=== PATIENT | female | born 1995 | race Caucasian/White ===

== ENCOUNTER 2017-12-23 11:34 | Emergency (ER) | payer OTHER ==
[2017-12-23] MEDS ORDERED: HYDROCODONE/ACETAMINOPHEN 5-325 MG TABLET PO ONE (11:54)
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
[2017-12-23 12:54] LABS: APPEARANCE,URINE SLIGHTLY-CLOUDY; BILIRUBIN,URINE NEGATIVE (NEGATIVE); COLOR,URINE YELLOW; GLUCOSE, URINE NEGATIVE (NEGATIVE); KETONES,URINE NEGATIVE (NEGATIVE); LEUKOCYTE ESTERASE,URINE NEGATIVE (NEGATIVE); NITRITE,URINE NEGATIVE (NEGATIVE); PROTEIN,URINE NEGATIVE (NEGATIVE); URINE SPECIFIC GRAVITY 1.009; UROBILINOGEN,URINE NEGATIVE mg/dL (<2.0)
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
[2017-12-23] MEDS ORDERED: IBUPROFEN 800 MG TABLET PO ONE (13:50)
[2017-12-23 14:04] VITALS: BP 119/79
== END 2017-12-23 14:04 | disposition home or self-care (01) ==
LOC: ER 11:34
DX: M79.605 Pain in left leg (principal); M25.512 Pain in left shoulder; R51 Headache; V49.9XXA Car occupant (driver) (passenger) injured in unspecified traffic accident, initial encounter; F41.9 Anxiety disorder, unspecified; Z88.5 Allergy status to narcotic agent; Z88.0 Allergy status to penicillin
CPT/HCPCS: 70450; 72125; 81001; 81025; 99284

== ENCOUNTER 2018-05-24 19:31 | Emergency (ER) | payer OTHER ==
[2018-05-24 20:21] VITALS: BP 117/73
== END 2018-05-24 21:15 | disposition left against medical advice (07) ==
LOC: ER 19:31
DX: Z53.21 Procedure and treatment not carried out due to patient leaving prior to being seen by health care provider (principal)

== ENCOUNTER 2018-06-13 20:32 | Emergency (ER) | payer MEDICAID, OTHER ==
[2018-06-13] MEDS ORDERED: AZITHROMYCIN 250 MG TABLET PO ONE (22:17)
--- NOTE | 2018-06-13 22:24 | ER Document Report ---
HPI - HPI Patient complains to provider of: Sinus pain, congestion, cough Pain Level: 5 Context: Patient is a 22-year-old female that comes to the emergency department for chief complaint of sinus pain, she states she hurts in all of her sinuses with throbbing, nasal discharge, cough, hoarseness, postnasal drip, she states she even vomited up some mucus. She denies any abdominal pain, vaginal bleeding, she is 9 weeks with her first child. She is on vitamins, denies any other medications. She denies smoking, asthma, or any other medical history. Mother at bedside. - CONSTITUTIONAL Constitutional: REPORTS: Fever - pt states on and off fever - EENT EENT: REPORTS: Sore Throat, Ear Pain. DENIES: Eye problems - NEURO Neurology: REPORTS: Headache, Weakness - RESPIRATORY Respiratory: REPORTS: Coughing - REPRODUCTIVE Reproductive: REPORTS: : Past Medical History - General Information source: Patient - Social History Smoking Status: Never Smoker Frequency of alcohol use: None Drug Abuse: None Lives with: Family Family History: Reviewed & Not Pertinent Patient has suicidal ideation: No Patient has homicidal ideation: No - Past Medical History Cardiac Medical History: Denies: Hx Coronary Artery Disease, Hx Heart Attack, Hx Hypertension Pulmonary Medical History: Reports: Hx Bronchitis Denies: Hx Asthma, Hx COPD, Hx Pneumonia Neurological Medical History: Denies: Hx Cerebrovascular Accident, Hx Seizures Renal/ Medical History: Reports: Hx Ovarian Cysts. Denies: Hx Peritoneal Dialysis Musculoskeletal Medical History: Denies Hx Arthritis Past Surgical History: Reports: Hx Adenoidectomy, Hx Appendectomy, Hx Gynecologic Surgery - ovarian cyst removal, Hx Orthopedic Surgery, Hx Tonsillectomy - Immunizations Immunizations up to date: Yes Hx Diphtheria, Pertussis, Tetanus Vaccination: Yes Vertical Provider Document - CONSTITUTIONAL General Appearance: WD/WN, No Apparent Distress - INFECTION CONTROL TRAVEL OUTSIDE OF THE [place] IN LAST 30 DAYS: No - HEENT HEENT: Atraumatic, Normocephalic. negative: Normal ENT Exam - Sinus congestion with nasal congestion, tenderness over the maxillary and frontal sinuses which is very mild, unremarkable ear exam, oral pharyngeal exam shows postnasal drip but is otherwise unremarkable. - NECK Neck: Normal Inspection - RESPIRATORY Respiratory: Breath Sounds Normal, No Respiratory Distress - CARDIOVASCULAR Cardiovascular: Regular Rate, Regular Rhythm - GI/ABDOMEN Gastrointestinal: Abdomen Soft, Abdomen Non-Tender - MUSCULOSKELETAL/EXTREMETIES Musculoskeletal/Extremeties: ROSA ELENA, FROM, Non-Tender - NEURO Level of Consciousness: Awake, Alert, Appropriate - DERM Integumentary: Warm, Dry, No Rash Course - Re-evaluation Re-evalutation: This is very well-appearing patient except for sinus congestion, sinus tenderness. Clear lungs, no hypoxia, no cough, no respiratory distress. Unremarkable oropharyngeal exam. Soft abdomen, no abdominal pain or bleeding reported. Appears to be sinus infection that is developing. I discussed this with patient and mother, discussed treatment, follow-up, and return precautions. They state satisfaction and agreement with plan. - Vital Signs Vital signs: Temp Pulse Resp BP Pulse Ox 97.8 F 94 18 125/73 97 06/13/18 20:51 06/13/18 20:51 06/13/18 20:51 06/13/18 20:51 06/13/18 20:51 Discharge - Discharge Clinical Impression: Cough Sinusitis Qualifiers: Sinusitis location: maxillary Chronicity: acute Recurrence: non-recurrent Qualified Code(s): J01.00 - Acute maxillary sinusitis, unspecified Condition: Stable Disposition: HOME, SELF-CARE Additional Instructions: Your evaluation is consistent with probably initially a virus and also a developing sinus infection with secondary drainage and cough. Take antibiotics as prescribed, use Flonase as prescribed, you can use Phenergan to help with nausea, take Benadryl to help with sinus drainage and and sleep. Drink plenty fluids and rest. Follow-up with primary care. Return to the emergency department for any concerning symptoms including difficulty breathing, passing out, fever of 100.4 or greater, or any other concerning symptoms. Prescriptions: Azithromycin [Zithromax 250 mg Tablet] 250 mg PO ASDIR PRN #4 tablet PRN Reason: Fluticasone Propionate [Flonase Nasal [place] 50 Mcg/[place] 16 gm] 1 spray NASL Q12 #1 inhaler Promethazine HCl [Phenergan 25 mg Tablet] 25 mg PO Q6H PRN #15 tablet PRN Reason: Forms: Return to Work Referrals: DAVE MCADAMS MD [Primary Care Provider] - 06/17/18
[2018-06-13 22:44] VITALS: BP 109/50
== END 2018-06-13 22:44 | disposition home or self-care (01) ==
LOC: ER 20:32
DX: O98.811 Other maternal infectious and parasitic diseases complicating pregnancy, first trimester (principal); J01.00 Acute maxillary sinusitis, unspecified; O26.891 Other specified pregnancy related conditions, first trimester; R05 Cough; R50.9 Fever, unspecified; Z3A.09 9 weeks gestation of pregnancy
CPT/HCPCS: 99283; Q0144

== ENCOUNTER 2018-06-26 23:23 | Emergency (ER) | payer MEDICAID ==
[2018-06-26 23:28] VITALS: BP 127/68
--- NOTE | 2018-06-27 00:25 | ER Document Report ---
ED Medical Screen (RME) - General Chief Complaint: Cough Stated Complaint: COUGH,LEFT EAR PAIN Time Seen by Provider: 06/27/18 00:22 Notes: 22-year-old female, 10 weeks by last menstrual period, chief complaint of 4 days of worsening cough and fevers. She does have congestion and right ear pain as well. She did have her flu shot. She was seen at the end of last month and treated with antibiotics for a sinus infection which she states resolved before she started getting sick again. 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 She denies abdominal pain, vaginal bleeding. TRAVEL OUTSIDE OF THE [place] IN LAST 30 DAYS: No - Related Data Allergies/Adverse Reactions: Latex, Natural Rubber Allergy (Verified 05/24/18 19:32) morphine [Morphine] Allergy (Verified 05/24/18 19:32) Vomiting penicillin G [Penicillin G] Allergy (Verified 05/24/18 19:32) Urticaria Penicillins Allergy (Verified 05/24/18 19:32) Urticaria Past Medical History - Past Medical History Cardiac Medical History: Denies: Hx Coronary Artery Disease, Hx Heart Attack, Hx Hypertension Pulmonary Medical History: Reports: Hx Bronchitis Denies: Hx Asthma, Hx COPD, Hx Pneumonia Neurological Medical History: Denies: Hx Cerebrovascular Accident, Hx Seizures Renal/ Medical History: Reports: Hx Ovarian Cysts. Denies: Hx Peritoneal Dialysis Musculoskeltal Medical History: Denies Hx Arthritis Past Surgical History: Reports: Hx Adenoidectomy, Hx Appendectomy, Hx Gynecologic Surgery - ovarian cyst removal, Hx Orthopedic Surgery, Hx Tonsillectomy - Immunizations Immunizations up to date: Yes Hx Diphtheria, Pertussis, Tetanus Vaccination: Yes Physical Exam - Vital signs Vitals: Temp Pulse Resp BP Pulse Ox 98.4 F 94 16 127/68 H 96 06/26/18 23:26 06/26/18 23:26 06/26/18 23:26 06/26/18 23:26 06/26/18 23:26 - Respiratory Breath sounds: Productive cough - Persistent cough with productive component, almost nonstop cough Course - Re-evaluation Re-evalutation: Patient with almost nonstop cough. Patient and mother wanted chest x-ray to evaluate for possible pneumonia. Also has congestion symptoms but has been sick for 4 days with reported fevers. Will do chest x-ray with shield. 06/27/18 00:24 - Vital Signs Vital signs: Temp Pulse Resp BP Pulse Ox 98.4 F 94 16 127/68 H 96 06/26/18 23:26 06/26/18 23:26 06/26/18 23:26 06/26/18 23:26 06/26/18 23:26 Doctor's Discharge - Discharge Referrals: DAVE MCADAMS MD [Primary Care Provider] - Follow up as needed
--- NOTE | 2018-06-27 01:29 | RADIOLOGY REPORT (SQ) ---
EXAM DESCRIPTION: XR CHEST 1 VIEW COMPLETED DATE/TME: 06/27/2018 00:22 CLINICAL HISTORY: fevers, persistent cough; (shield) COMPARISON: March 21, 2014 FINDINGS: Cardiac silhouette is within normal limits. There is no focal parenchymal or pleural disease. There is no acute osseous process visualized. IMPRESSION: No evidence of acute cardiopulmonary disease.
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
== END 2018-06-27 02:25 | disposition home or self-care (01) ==
LOC: ER 23:23
DX: O26.91 Pregnancy related conditions, unspecified, first trimester (principal); J30.2 Other seasonal allergic rhinitis; R05 Cough; H92.02 Otalgia, left ear; Z3A.10 10 weeks gestation of pregnancy; Z91.040 Latex allergy status; Z88.0 Allergy status to penicillin; Z88.6 Allergy status to analgesic agent
CPT/HCPCS: 71045; 99283

== ENCOUNTER 2018-09-05 14:20 | Emergency (ER) | payer MEDICAID ==
--- NOTE | 2018-09-05 14:54 | ER Document Report ---
HPI - HPI Patient complains to provider of: Eye drainage Time Seen by Provider: 09/05/18 14:38 Onset: Yesterday Onset/Duration: Gradual Pain Level: 5 Context: Patient states she had eye irritation yesterday with swelling to the left upper eyelid. Patient states she was applying warm compresses frequently throughout the day. Patient states she woke up this morning and had drainage and matting her left eyelid. Patient states that the swelling to the upper eyelid seems to be improved although is still mildly tender. Patient denies any use of contact lenses or glasses. Patient is concerned about [employer] as she works in [employer]. 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 Denies: Hx Peritoneal Dialysis Musculoskeletal Medical History: Denies Hx Arthritis Past Surgical History: Reports: Hx Adenoidectomy, Hx Appendectomy, Hx Gynecologic Surgery - ovarian cyst removal, Hx Orthopedic Surgery, Hx Tonsillectomy - Immunizations Immunizations up to date: Yes Hx Diphtheria, Pertussis, Tetanus Vaccination: Yes Vertical Provider Document - CONSTITUTIONAL Agree With Documented VS: Yes Exam Limitations: No Limitations General Appearance: WD/WN, No Apparent Distress - INFECTION CONTROL TRAVEL OUTSIDE OF THE [place] IN LAST 30 DAYS: No - HEENT HEENT: Atraumatic, Normocephalic, PERRLA Notes: Subtle swelling to medial upper eyelid concerning for hordeolum, very minimal drainage noted to base of eyelashes - NECK Neck: Normal Inspection, Supple. negative: Lymphadenopathy-Left, Lymphadenopathy-Right - RESPIRATORY Respiratory: No Respiratory Distress - BACK Back: Normal Inspection - MUSCULOSKELETAL/EXTREMETIES Musculoskeletal/Extremeties: IVAN CUBA - NEURO Level of Consciousness: Awake, Alert, Appropriate Motor/Sensory: No Motor Deficit - DERM Integumentary: Warm, Dry, No Rash Course - Re-evaluation Re-evalutation: 09/05/18 14:52 Patient presents with likely resolving stye at this time. No conjunctival injection. Patient does not wear glasses or contact lenses. No change in vision. 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 - Vital Signs Vital signs: Temp Pulse Resp BP Pulse Ox 98.6 F 102 H 14 120/68 99 09/05/18 14:28 09/05/18 14:28 09/05/18 14:28 09/05/18 14:28 09/05/18 14:28 Discharge - Discharge Clinical Impression: Hordeolum externum left upper eyelid Conjunctivitis Qualifiers: Conjunctivitis type: unspecified Laterality: left Qualified Code(s): H10.9 - Unspecified conjunctivitis Condition: Stable Disposition: HOME, SELF-CARE Instructions: Conjunctivitis ([facility]), Eyedrop Use ([facility]), Sty ([facility]) Additional Instructions: Return immediately for any new or worsening symptoms Followup with your primary care provider, call tomorrow to make a followup appointment Follow-up with cardiac cath tech for any persistent problems Prescriptions: Polymyxin B Sulfate/Tmp [Polytrim Oph Soln 10 ml] 1 drop LFT_EYE ASDIR #1 bottle Forms: Return to Work Referrals: DAVE MCADAMS MD [ACTIVE STAFF] - Follow up as needed [facility] [Provider Group] - Follow up as needed [facility] [Provider Group] - Follow up as needed
[2018-09-05 16:02] VITALS: BP 109/64
== END 2018-09-05 15:37 | disposition home or self-care (01) ==
LOC: ER 14:20
DX: H00.014 Hordeolum externum left upper eyelid (principal); H10.9 Unspecified conjunctivitis; R60.9 Edema, unspecified
CPT/HCPCS: 99283

== ENCOUNTER 2018-10-03 18:02 | Emergency (ER) | payer MEDICAID ==
[2018-10-03 18:06] VITALS: BP 129/70
[2018-10-03 19:02] LABS: A TYPE INFLUENZA AG NEGATIVE (NEGATIVE); B INFLUENZA AG NEGATIVE (NEGATIVE)
[2018-10-03] MEDS ORDERED: AZITHROMYCIN 250 MG TABLET PO ONE (19:18)
--- NOTE | 2018-10-03 19:22 | ER Document Report ---
HPI - HPI Time Seen by Provider: 10/03/18 19:09 Pain Level: 3 Context: Patient is a 22-year-old female that comes to the emergency department for chief complaint of 2 weeks of persistent sinus congestion, postnasal drip, occasional cough, pain with cough. She states that for the past 3 days her sinus symptoms have significantly worsened, she is purulent nasal drainage and has had an episode where she vomited out mucus. She denies difficulty breathing. She states she has had some chills. She is 21 weeks , she denies abdominal pain, denies vaginal bleeding, states that she is feeling baby move. She denies smoking. 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 She denies smoking. - REPRODUCTIVE Reproductive: DENIES: : Past Medical History - General Information source: Patient - Social History Smoking Status: Never Smoker Frequency of alcohol use: None Drug Abuse: None Lives with: Family Family History: Reviewed & Not Pertinent - Past Medical History Cardiac Medical History: Denies: Hx Coronary Artery Disease, Hx Heart Attack, Hx Hypertension Pulmonary Medical History: Reports: Hx Bronchitis Denies: Hx Asthma, Hx COPD, Hx Pneumonia Neurological Medical History: Denies: Hx Cerebrovascular Accident, Hx Seizures Renal/ Medical History: Reports: Hx Ovarian Cysts. Denies: Hx Peritoneal Dialysis Musculoskeletal Medical History: Denies Hx Arthritis Past Surgical History: Reports: Hx Adenoidectomy, Hx Appendectomy, Hx Gynecologic Surgery - ovarian cyst removal, Hx Orthopedic Surgery, Hx Tonsillectomy - Immunizations Immunizations up to date: Yes Hx Diphtheria, Pertussis, Tetanus Vaccination: Yes Vertical Provider Document - CONSTITUTIONAL General Appearance: WD/WN, No Apparent Distress - INFECTION CONTROL TRAVEL OUTSIDE OF THE [place] IN LAST 30 DAYS: No - HEENT HEENT: Atraumatic, Normocephalic, PERRLA. negative: Normal ENT Exam - Noted tenderness over both maxillary sinuses, slightly worse on the left. No frontal tenderness. Oral pharyngeal exam shows erythema and postnasal drip but normal uvula, no exudative pharyngitis, no sign of abscess. ENT exam is otherwise unremarkable. - NECK Neck: Normal Inspection. negative: Lymphadenopathy-Left, Lymphadenopathy-Right - RESPIRATORY Respiratory: Breath Sounds Normal, No Respiratory Distress - CARDIOVASCULAR Cardiovascular: Regular Rate, Regular Rhythm. negative: Tachycardia - not tachycardic on my exam - GI/ABDOMEN Gastrointestinal: Abdomen Soft, Abdomen Non-Tender. negative: No Organomegaly - gravid abdomen - BACK Back: Normal Inspection - MUSCULOSKELETAL/EXTREMETIES Musculoskeletal/Extremeties: MAEW, FROM, Non-Tender - NEURO Level of Consciousness: Awake, Alert, Appropriate Motor/Sensory: No Motor Deficit, No Sensory Deficit - DERM Integumentary: Warm, Dry, No Rash Course - Re-evaluation Re-evalutation: Patient is 2 weeks of sinus congestion with some worsening symptoms for the past 3 days with purulent component suggestive of bacterial sinusitis. Unfortunately patient is allergic to penicillins. She is . Placing on azithromycin. Given first dose. Giving [id number] medications additionally which are safe in . Patient is reporting chills, she is not febrile here. She is not tachycardic on my exam. She is well-appearing otherwise. She is having no abdominal or symptoms. No respiratory symptoms. No hypoxia. Patient will be discharged with instructed follow-up. Discussed return precautions. Patient states understanding and agreement. - Vital Signs Vital signs: Temp Pulse Resp BP Pulse Ox 98.7 F 108 H 16 129/70 H 99 10/03/18 18:06 10/03/18 18:06 10/03/18 18:06 10/03/18 18:06 10/03/18 18:06 Discharge - Discharge Clinical Impression: Sore throat Sinusitis Qualifiers: Sinusitis location: maxillary Chronicity: acute Recurrence: recurrent Qualified Code(s): J01.01 - Acute recurrent maxillary sinusitis Qualifiers: Weeks of gestation: 22 weeks Qualified Code(s): Z3A.22 - 22 weeks gestation of Condition: Stable Disposition: HOME, SELF-CARE Additional Instructions: Your influenza test is negative. Your evaluation is consistent with bacterial sinusitis, this is most likely initially viral sinusitis. Because of your penicillin allergy we have placed you on azithromycin, take as prescribed to completion. Use the Flonase and cetirizine, take Tylenol for chills and pain, drink plenty of fluids and rest. Use Phenergan for nausea during . Use only if needed. Return if you worsen including severe headache, spiking fevers, or any other concerning or worsening symptoms. Prescriptions: Azithromycin [Zithromax 250 mg Tablet] 250 mg PO ASDIR PRN #4 tablet PRN Reason: Cetirizine HCl [All Day Allergy] 10 mg PO DAILY #30 tablet Fluticasone Propionate [Flonase Nasal Jenkins 50 Mcg/Jenkins 16 gm] 2 sprays NASL Q12 #1 inhaler Promethazine HCl [Phenergan 25 mg Tablet] 25 mg PO Q6H PRN #15 tablet PRN Reason: Forms: Return to Work
== END 2018-10-03 19:49 | disposition home or self-care (01) ==
LOC: ER 18:02
DX: O26.92 Pregnancy related conditions, unspecified, second trimester (principal); J01.01 Acute recurrent maxillary sinusitis; R05 Cough; Z3A.22 22 weeks gestation of pregnancy
CPT/HCPCS: 99283; 87804; Q0144

== ENCOUNTER 2019-01-01 22:34 | Outpatient (CLI) | payer MEDICAID ==
[2019-01-01 23:05] LABS: APPEARANCE,URINE CLEAR; BILIRUBIN,URINE NEGATIVE (NEGATIVE); COLOR,URINE YELLOW; GLUCOSE, URINE NEGATIVE (NEGATIVE); KETONES,URINE NEGATIVE (NEGATIVE); LEUKOCYTE ESTERASE,URINE NEGATIVE (NEGATIVE); NITRITE,URINE NEGATIVE (NEGATIVE); PROTEIN,URINE NEGATIVE (NEGATIVE); URINE SPECIFIC GRAVITY 1.008; UROBILINOGEN,URINE NEGATIVE mg/dL (<2.0)
[2019-01-01 23:26] LABS: URINE AMPHETAMINES SCREEN NEGATIVE; URINE BARBITURATES SCREEN NEGATIVE; URINE BENZODIAZEPINES SCREEN NEGATIVE; URINE COCAINE SCREEN NEGATIVE; URINE MARIJUANA (THC) SCREEN NEGATIVE; URINE METHADONE SCREEN NEGATIVE; URINE PHENCYCLIDINE SCREEN NEGATIVE
--- NOTE | 2019-01-02 00:13 | Non Stress Test Report ---
Non Stress Test Datetime Report Generated by CPN: 01/02/2019 00:12 DEMOGRAPHIC Test Number: 1 EGA NST: 36.2 INDICATION Indication for Study: Other MONITORING Monitor Explained: Monitor Explained; Test Explained; Patient Verbalized Understanding Time on Monitor: 01/02/2019 22:56 Time off Monitor: 01/02/2019 23:41 Time off Monitor: 01/02/2019 23:40 NST Duration: 45 NST INTERVENTIONS NST Interventions: PO Hydration Physician Notified NST: Dr. Younger BABY A: [id number] BABY A Movement : Present Movement : Present Contraction Frequency : no ctx FHR Baseline : 140 Accelerations : 15X15 Decelerations : None Variability : Moderate 6-25bpm NST Review: Meets Criteria for Reactive NST NST Review: Meets Criteria for Reactive NST NST Review and Verified By : CHRISTIANO Weathers NST Results: Reactive NST Results: Reactive NST REPORT Report Trigger: Send Report
== END 2019-01-01 23:45 | disposition home or self-care (01) ==
LOC: LC 22:34
PROVIDERS: ATTEND Obstetrics & Gynecology
PROC: 4A1HXCZ Monitoring of Products of Conception, Cardiac Rate, External Approach (ICD-10-PCS; principal; 2019-01-01)
DX: O47.03 False labor before 37 completed weeks of gestation, third trimester (principal); Z3A.36 36 weeks gestation of pregnancy
CPT/HCPCS: 59025; 80307; 81001

== ENCOUNTER 2019-01-24 18:41 | Outpatient (CLI) | payer MEDICAID ==
[2019-01-24 19:40] LABS: APPEARANCE,URINE SLIGHTLY-CLOUDY; BILIRUBIN,URINE NEGATIVE (NEGATIVE); COLOR,URINE YELLOW; GLUCOSE, URINE NEGATIVE (NEGATIVE); KETONES,URINE NEGATIVE (NEGATIVE); LEUKOCYTE ESTERASE,URINE NEGATIVE (NEGATIVE); NITRITE,URINE NEGATIVE (NEGATIVE); PROTEIN,URINE NEGATIVE (NEGATIVE); URINE SPECIFIC GRAVITY 1.011; UROBILINOGEN,URINE NEGATIVE mg/dL (<2.0)
[2019-01-24 20:03] LABS: URINE AMPHETAMINES SCREEN NEGATIVE; URINE BARBITURATES SCREEN NEGATIVE; URINE BENZODIAZEPINES SCREEN NEGATIVE; URINE COCAINE SCREEN NEGATIVE; URINE MARIJUANA (THC) SCREEN NEGATIVE; URINE METHADONE SCREEN NEGATIVE; URINE PHENCYCLIDINE SCREEN NEGATIVE
--- NOTE | 2019-01-24 20:28 | Non Stress Test Report ---
Non Stress Test Datetime Report Generated by CPN: 01/24/2019 20:28 DEMOGRAPHIC EGA NST: 39.3 INDICATION Indication for Study: Ordered by Provider; Other Indication for Study (NST) Other: labor check MONITORING Monitor Explained: Monitor Explained; Test Explained; Patient Verbalized Understanding Time on Monitor: 01/24/2019 19:05 Time off Monitor: 01/24/2019 20:13 NST Duration: 68 NST INTERVENTIONS NST Interventions: PO Hydration Physician Notified NST: Younger BABY A: [id number] BABY A Movement : Present Contraction Frequency : 2-3 FHR Baseline : 145 Accelerations : 15X15 Decelerations : None Variability : Moderate 6-25bpm NST Review: Meets Criteria for Reactive NST NST Review and Verified By : Rashid NST Results: Reactive NST REPORT Report Trigger: Send Report
== END 2019-01-24 20:20 | disposition home or self-care (01) ==
LOC: LC 18:41
PROVIDERS: ATTEND Obstetrics & Gynecology
PROC: 4A1HXCZ Monitoring of Products of Conception, Cardiac Rate, External Approach (ICD-10-PCS; principal; 2019-01-24)
DX: O47.1 False labor at or after 37 completed weeks of gestation (principal); Z3A.39 39 weeks gestation of pregnancy
CPT/HCPCS: 59025; 80307; 81005; 84112

== ENCOUNTER 2019-01-28 10:39 | Inpatient (IN) | payer MEDICAID ==
[2019-01-28 11:53] LABS: ABSOLUTE BASOPHILS # (AUTO) 0.1 10^3/uL (0.0-0.2); ABSOLUTE LYMPHOCYTES (AUTO) 2.2 10^3/uL (0.5-4.7); ABSOLUTE MONOCYTES (AUTO) 0.5 10^3/uL (0.1-1.4); BASOPHILS % (AUTO) 0.6 % (0-2); EOSINOPHILS % (AUTO) 0.1 % (0-6); HEMATOCRIT 36.7 % (36.0-47.0); HEMOGLOBIN 12.5 g/dL (12.0-15.5); LYMPHOCYTES % (AUTO) 16.9 % (13-45); MEAN CORPUSCULAR HEMOGLOBIN 28.7 pg (27.0-33.4); MEAN CORPUSCULAR HGB CONC 34.2 g/dL (32.0-36.0); MEAN CORPUSCULAR VOLUME 84 fl (80-97); MONOCYTES % (AUTO) 4.2 % (3-13); PLATELET COUNT 218 10^3/uL (150-450); RED BLOOD COUNT 4.36 10^6/uL (3.72-5.28); RED CELL DISTRIBUTION WIDTH 13.4 % (11.5-14.0); SEGMENTED NEUTROPHILS % (AUTO) 78.2 % (42-78); TOTAL CELLS COUNTED % (AUTO) 100 %; WHITE BLOOD COUNT 12.8 10^3/uL (4.0-10.5)
[2019-01-28] MEDS ORDERED: RINGERS SOLUTION,LACTATED 1,000 ML IV PRN (15:16)
[2019-01-28] MEDS ORDERED: RINGERS SOLUTION,LACTATED 1,000 ML IV ONE (15:16)
[2019-01-28] MEDS ORDERED: FENTANYL/BUPIVACAINE/NS/PF 300 MCG/150 ML RTUINJ EPI ONE (15:32)
[2019-01-28] MEDS ORDERED: EPHEDRINE SULFATE INJ 50 MG/1 ML AMPULE ONE (15:32)
[2019-01-28] MEDS ORDERED: BUPIVACAINE HCL 0.25 % INJ/PF (2.5 MG/1 ML) 30 ML VIAL ONE (15:32)
--- NOTE | 2019-01-28 15:43 | Admission Physical ---
Datetime Report Generated by CPN: 01/28/2019 15:43 CURRENT ADMISSION Hx Assessment: The History has been Reviewed and is Current Chief Complaint: Uterine Contractions Indication for Induction: Not Applicable Admit Impression : Term, Intrauterine Admit Plan: Admit to Unit; Initiate Labor Protocol ALLERGIES Medication Allergies: Yes Medication Allergies: Penicillins/Urticaria (01/28/2019); Latex, Natural Rubber (01/28/2019); morphine/Vomiting (01/28/2019); penicillin G/Urticaria (01/28/2019) Latex: Latex Allergies Food Allergies: none OBSTETRICAL HISTORY EDC: 01/28/2019 00:00 : 1 Para: 0 Gestational Diabetes: No Rh Sensitization: No Incompetent Cervix: No ANGELITA: No Infertility: No ART Treatment: No Uterine Anomaly: No IUGR: No Hx Previous C/S: No Macrosomia: No Hx Loss/Stillborn: No PIH: No Hx : No Placenta Previa/Abruption: No Depression/PP Depression: No PTL/PROM: No Post Hemorrhage: No Current Procedures: Ultrasound; NST Obstetrical History Comments: G1- current SEE RECORDS Alcohol: No Marijuana : No Cocaine: No Other Illicit Drugs: No MEDICAL HISTORY Diabetes: No Blood Transfusion: No Pulmonary Disease (Asthma, TB): No Breast Disease: No Hypertension: No 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 Surgery: No Heart Disease: No Hosp/Surgery: Yes Autoimmune Disorder: No Anesthetic Complications: No Kidney Disease: No Abnormal Pap Smear: No Neuro/Epilepsy: No Psychiatric Disorders: No Other Medical Diseases: No Hepatitis/Liver Disease: No Significant Family History: No Varicosities/Phlebitis: No Trauma/Violence : No Thyroid Dysfunction: No Medical History Comments: appendectomy, ovary on cyst removed, right knee surgery, T _ A INFECTIOUS HISTORY Gonorrhea: No Genital Herpes: No Chlamydia: No Tuberculosis: No Syphilis: No Hepatitis: No HIV/AIDS Exposure: No Rash or Viral Illness: No HPV: No PHYSICAL EXAM General: Normal Heart: Normal Lungs: Normal Vital Signs: Reviewed; Within Normal Limits VAGINAL EXAM Dilatation: 8 Effacement: 100 Station: 0 Contraction Comments: 2 MEMBRANES Membranes: Ruptured Amniotic Fluid Color: Clear FETUS A EGA: 40.0 Monitoring: External US FHR Category: Category I Presentation: Vertex Admit Comment: 23yo @ 40wga into L_D with contractions was allowed to walk x1hr then had cervical change and the decision was made to keep patient for delivery. Pt. is B positive, RI, GBS neg. Medical hx significant for ASCUS pap but neg HPV. No other significant medical hx. Pt. desired AROM on admission which was done and pt. tolerated well. now awaiting epidural placement. Denies any concerns, anticipate delivery. PLANS FOR LABOR AND DELIVERY Labor and Delivery: Other, Specify Pain Management: Epidural Feeding Preference: Formula Benefit of Breast Feed Discussed: Yes Circumcision: N/A INFORMED CONSENT Assignment: Vera Davis MD Signature: with User ID: Pedro : with User ID: [email or web address]
[2019-01-28 16:02] LABS: APPEARANCE,URINE CLOUDY; BILIRUBIN,URINE NEGATIVE (NEGATIVE); COLOR,URINE YELLOW; GLUCOSE, URINE NEGATIVE (NEGATIVE); KETONES,URINE NEGATIVE (NEGATIVE); LEUKOCYTE ESTERASE,URINE MODERATE (NEGATIVE); NITRITE,URINE NEGATIVE (NEGATIVE); PROTEIN,URINE NEGATIVE (NEGATIVE); URINE SPECIFIC GRAVITY 1.006; UROBILINOGEN,URINE NEGATIVE mg/dL (<2.0)
[2019-01-28] MEDS ORDERED: OXYTOCIN 10 UNIT/ML VIAL ONE ×2 (16:18→18:29)
[2019-01-28] MEDS ORDERED: MISOPROSTOL 0.2 MG TABLET ONE (16:19)
[2019-01-28] MEDS ORDERED: LIDOCAINE 1% INJ-PF (10 MG/ML) 30 ML SDV ONE (16:19)
[2019-01-28] MEDS ORDERED: OXYTOCIN/NORMAL SALINE 20 UNIT/1,000 ML RTUINJ ONE ×2 (16:19→20:31)
[2019-01-28 16:21] LABS: URINE AMPHETAMINES SCREEN NEGATIVE; URINE BARBITURATES SCREEN NEGATIVE; URINE BENZODIAZEPINES SCREEN NEGATIVE; URINE COCAINE SCREEN NEGATIVE; URINE MARIJUANA (THC) SCREEN NEGATIVE; URINE METHADONE SCREEN NEGATIVE; URINE PHENCYCLIDINE SCREEN NEGATIVE
[2019-01-28] MEDS: OXYTOCIN/NORMAL SALINE 20 UNIT/1,000 ML RTUINJ IV PRN ×2 (18:30→20:57)
[2019-01-28] MEDS ORDERED: PSEUDOEPHEDRINE HCL 30 MG TABLET PO PRN (19:03)
[2019-01-28] MEDS ORDERED: ACETAMINOPHEN WITH CODEINE #3 TABLET PO PRN ×2 (19:03)
[2019-01-28] MEDS ORDERED: PROMETHAZINE HCL 25 MG SUPP.RECT PR PRN (19:03)
[2019-01-28] MEDS ORDERED: MAGNESIUM HYDROXIDE SUSP 30 ML UDCUP PO PRN (19:03)
[2019-01-28] MEDS ORDERED: BENZOCAINE/MENTHOL AEROSOL SPRAY 56 ML TOP PRN (19:03)
[2019-01-28] MEDS ORDERED: NA PHOS,M-B/NA PHOS,DI-BA (ADULT) 133 ML ENEMA PR PRN (19:03)
[2019-01-28] MEDS ORDERED: DIPH/PERTUSS(ACELL)/TETANUS VAC/PF 0.5 ML SYR (>=10YO) IM PRN (19:03)
[2019-01-28] MEDS ORDERED: ACETAMINOPHEN 325 MG TABLET PO PRN (19:03)
[2019-01-28] MEDS ORDERED: MISOPROSTOL 0.2 MG TABLET PR PRN (19:03)
[2019-01-28] MEDS ORDERED: DIBUCAINE 1% OINTMENT 56 GM TP PRN (19:03)
[2019-01-28] MEDS ORDERED: PROMETHAZINE HCL 25 MG TABLET PO PRN (19:03)
[2019-01-28] MEDS ORDERED: PROMETHAZINE HCL INJ 25 MG/1 ML VIAL IV PRN (19:03)
[2019-01-28] MEDS ORDERED: GLYCERIN/WITCH HAZEL LEAF 1 EACH MED..WIPE TP PRN (19:03)
[2019-01-28] MEDS ORDERED: DIPHENHYDRAMINE HCL 25 MG CAPSULE PO PRN (19:03)
[2019-01-28] MEDS ORDERED: MEASLES,MUMPS&RUBELLA VACC/PF 0.5 ML VIAL SUBCUT PRN (19:03)
[2019-01-28] MEDS ORDERED: ZOLPIDEM TARTRATE 5 MG TABLET PO PRN (19:03)
[2019-01-28] MEDS ORDERED: OXYTOCIN/NORMAL SALINE 20 UNIT/1,000 ML RTUINJ IV PRN (20:29)
--- NOTE | 2019-01-28 21:08 | Delivery Summary ---
Del Sum A-C Datetime Report Generated by CPN: 01/28/2019 21:08 DELIVERY PERSONNEL DELIVERY PERSONNEL: [id number] Delivery Doctor:: Vera Davis MD Anesthesiologist:: Lloyd Ny MD Labor and Delivery Nurse:: Zahraa Sawant RN Outreach And Education Social Worker/HOTEL RESERVATION AGENT: Becky Rodriguez, ST MATERNAL INFORMATION Delivery Anesthesia: Epidural Medications After Delivery: Pitocin 10 Units IM; Pitocin Drip 20 Units/1000ml NSS; Cytotec 1000mcg Per Rectum/Vagina Estimated Blood Loss (ml): 600 Maternal Complications: None Provider Comments: VFI delivered in EFREM presentation. No nuchal cord. Shoulders and body delivered without difficulty. Cord doubly clamped and cut and to maternal abdomen. Placenta delivered intact spontaneously. FF at U after uterine atony resolved with 10 units of Pitocin IM and 20 units of Pitocin in IV bag of 1 liter, Cytotec 1000mcg FL. 1st degree perineal laceration repaired in usual fashion. Good hemostasis. Mother and baby stable upon provider leaving the room. LABOR SUMMARY EDC: 01/28/2019 00:00 No. Babies in Womb: 1 Attempted: No Labor Anesthesia: Epidural LABOR INFORMATION Reason for Induction: Not Applicable Onset of Labor: 01/28/2019 11:00 Complete Dilatation: 01/28/2019 18:07 Oxytocin: N/A Group B Beta Strep: Negative Steroids Given: None Reason Steroids Not Administered: Not Applicable MEMBRANES Membranes Rupture Method: Artificial Rupture of Membranes: 01/28/2019 15:18 Length of Rupture (hr): 3.02 Amniotic Fluid Color: Clear Amniotic Fluid Amount: Moderate Amniotic Fluid Odor: Normal STAGES OF LABOR Stage 1 hr: 7 Stage 1 min: 7 Stage 2 hr: 0 Stage 2 min: 12 Stage 3 hr: 0 Stage 3 min: 3 Total Time in Labor hr: 7 Total Time in Labor min: 22 VAGINAL DELIVERY Episiotomy: None Laceration #1: Perineal Laceration Extension #1: First Degree Laceration Repair: Yes Laceration Repair Note: 1st degree perineal laceration repaired in usual fashion Sponge Count Correct: Yes Sharps Count Correct: N/A CSECTION DELIVERY Primary Indication: N/A Secondary Indication: N/A CSection Incision: N/A BABY A INFORMATION Delivery Date/Time: 01/28/2019 18:19 Method of Delivery: Vaginal Born in Route : No Forceps: N/A Vacuum Extraction: N/A Shoulder Dystocia : No PRESENTATION/POSITION BABY A Presentation: Cephalic PLACENTA INFORMATION BABY A Placenta Delivery Time : 01/28/2019 18:22 Placenta Method of Delivery: Spontaneous Placenta Status: Delivered SCORES BABY A Heart Rate 1 min: >100 bpm Resp Effort 1 min: Good Cry Reflex Irritability 1 min: Cough or Sneeze or Pulls Away Muscle Tone 1 min: Active Motion Color 1 min: Blue/Pale Resuscitation Effort 1 min: Tactile Stimulation SCORE 1 MIN: 8 Heart Rate 5 min: >100 bpm Resp Effort 5 min: Good Cry Reflex Irritability 5 min: Cough or Sneeze or Pulls Away Muscle Tone 5 min: Active Motion Color 5 min: Body [place], Extremities Blue Resuscitation Effort 5 min: Tactile Stimulation SCORE 5 MIN: 9 INFANT INFORMATION BABY A Gestational Age at Delivery: 40.0 Gestational Status: Full Term- 39- 40.6 Weeks Infant Outcome : Liveborn Condition : Stable Sex: Female IDENTIFICATION BABY A Infant Verification Date/Time: 01/28/2019 19:12 ID Band Number: [id number] Mother's Name Verified: Yes RN Verifying Infant: Karin Craven, RN, MAnurag Sawant, RN WEIGHT/LENGTH BABY A Infant Birthweight (gm): 3014 Infant Weight (lb): 6 Weight (oz): 10 Length (in): 19.50 Length (cm): 49.53 CORD INFORMATION BABY A Nuchal Cord : N/A Cord Blood Taken: Yes-For Storage (Mom's Blood type +) Infant Suction: None ASSESSMENT BABY A Skin to Skin: Yes Skin to Skin Time (min): 60 SIGNATURES Signature: with User ID: [email or web address]
[2019-01-28] MEDS: FAMOTIDINE 20 MG TABLET PO SCH (22:25)
[2019-01-28] MEDS: IBUPROFEN 800 MG TABLET PO SCH (22:25)
[2019-01-29] MEDS: IBUPROFEN 800 MG TABLET PO SCH ×3 (06:29→22:00)
[2019-01-29 07:15] LABS: HEMATOCRIT 28.7 % (36.0-47.0); MEAN CORPUSCULAR HEMOGLOBIN 28.7 pg (27.0-33.4); MEAN CORPUSCULAR VOLUME 85 fl (80-97); PLATELET COUNT 169 10^3/uL (150-450); RED CELL DISTRIBUTION WIDTH 13.7 % (11.5-14.0); WHITE BLOOD COUNT 13.6 10^3/uL (4.0-10.5)
[2019-01-29 07:28] LABS: HEMOGLOBIN 9.8 g/dL (12.0-15.5)
--- NOTE | 2019-01-29 10:15 | PDOC PROGRESS REPORT ---
Subjective-OB Progress Note for:: 01/29/19 Physical Exam (OB) Vital Signs: Temp Pulse Resp BP Pulse Ox 98.2 F 71 16 151/95 H 100 01/29/19 08:18 01/29/19 08:18 01/29/19 08:18 01/29/19 08:18 01/29/19 08:18 Intake & Output 01/28/19 01/29/19 01/30/19 06:59 06:59 06:59 Intake Total 245 Balance 245 Weight 92 kg - PIH/Pre-Eclampsia DTR's: 1 + Clonus: Negative Headache: Absent Epigastric Pain: No Visual Changes: No - Lochia Lochia Amount: Scant < 10 ml Lochia Color: Rubra/Red - Abdomen Description: Soft, Round Hernia Present: No Bowel Sounds: Normoactive Flatus Presence: Present Stool: Yes Fundal Description: Firm, Midline Fundal Height: u/u - u/2 Objective-Diagnostic Laboratory: 01/29/19 06:25 01/28/19 01/28/19 01/28/19 11:31 11:31 14:36 WBC 12.8 H RBC 4.36 Hgb 12.5 Hct 36.7 MCV 84 MCH 28.7 MCHC 34.2 RDW 13.4 Plt Count 218 Seg Neutrophils % 78.2 H Lymphocytes % 16.9 Monocytes % 4.2 Eosinophils % 0.1 Basophils % 0.6 Absolute Neutrophils 10.0 H Absolute Lymphocytes 2.2 Absolute Monocytes 0.5 Absolute Eosinophils 0.0 Absolute Basophils 0.1 Urine Color YELLOW Urine Appearance CLOUDY Urine pH 8.0 Ur Specific [place] 1.006 Urine Protein NEGATIVE Urine Glucose (UA) NEGATIVE Urine Ketones NEGATIVE Urine Blood MODERATE H Urine Nitrite NEGATIVE Ur Leukocyte Esterase MODERATE H Blood Type B POSITIVE Antibody Screen NEGATIVE 01/29/19 06:25 WBC 13.6 H RBC 3.40 L Hgb 9.8 L D Hct 28.7 L MCV 85 MCH 28.7 MCHC 34.0 RDW 13.7 Plt Count 169 Seg Neutrophils % Lymphocytes % Monocytes % Eosinophils % Basophils % Absolute Neutrophils Absolute Lymphocytes Absolute Monocytes Absolute Eosinophils Absolute Basophils Urine Color Urine Appearance Urine pH Ur Specific [place] Urine Protein Urine Glucose (UA) Urine Ketones Urine Blood Urine Nitrite Ur Leukocyte Esterase Blood Type Antibody Screen
[2019-01-29] MEDS: DOCUSATE SODIUM 100 MG CAPSULE PO SCH ×2 (14:26→17:50)
[2019-01-29] MEDS: FAMOTIDINE 20 MG TABLET PO SCH ×2 (14:26→22:00)
[2019-01-29] MEDS: FERROUS SULFATE 325 MG TABLET PO SCH ×2 (14:26→17:50)
[2019-01-29] MEDS: PRENATAL VITAMIN W DHA CAPSULE PO SCH (14:26)
[2019-01-29] MEDS: SENNOSIDES/DOCUSATE 8.6-50 MG 1 EACH TABLET PO SCH (14:27)
[2019-01-30] MEDS: IBUPROFEN 800 MG TABLET PO SCH (05:15)
[2019-01-30 08:16] VITALS: BP 139/71
[2019-01-30] MEDS: DOCUSATE SODIUM 100 MG CAPSULE PO SCH (09:15)
[2019-01-30] MEDS: SENNOSIDES/DOCUSATE 8.6-50 MG 1 EACH TABLET PO SCH (09:15)
[2019-01-30] MEDS: FAMOTIDINE 20 MG TABLET PO SCH (09:15)
[2019-01-30] MEDS: PRENATAL VITAMIN W DHA CAPSULE PO SCH (09:15)
[2019-01-30] MEDS: FERROUS SULFATE 325 MG TABLET PO SCH (09:15)
--- NOTE | 2019-01-30 11:10 | PDOC DISCHARGE SUMMARY ---
Final Diagnosis Discharge Date: 01/30/19 - Final Diagnosis (1) Active labor at term Is this a current diagnosis for this admission?: Yes (2) Obstetrical laceration, first degree Is this a current diagnosis for this admission?: Yes (3) Vaginal delivery Is this a current diagnosis for this admission?: Yes Discharge Data - Discharge Medication Prescriptions: Ferrous Sulfate [Feosol 325 mg Tablet] 325 mg PO BID #60 tablet Ibuprofen [Motrin 800 mg Tablet] 800 mg PO Q8HP PRN #60 tablet PRN Reason: Vit/Dha [ Multi + Dha Capsule] 1 cap PO DAILY #90 capsule Home Medications: Ferrous Sulfate [Feosol 325 mg Tablet] 325 mg PO BID #60 tablet 01/30/19 Ibuprofen [Motrin 800 mg Tablet] 800 mg PO Q8HP PRN #60 tablet 01/30/19 Vit/Dha [ Multi + Dha Capsule] 1 cap PO DAILY #90 capsule 01/30/19 Reason(s) for Admission: Onset of Labor Intrapartum Procedure(s): Spontaneous Vaginal Delivery Complication(s): Laceration-Perineal Laceration-Degree: 1st - Diagnosis Test Laboratory: Temp Pulse Resp BP Pulse Ox 98.3 F 66 15 139/71 H 100 01/30/19 07:40 01/30/19 07:40 01/30/19 07:40 01/30/19 07:40 01/30/19 07:40 01/28/19 01/28/19 01/29/19 11:31 14:36 06:25 RBC 4.36 3.40 L Hgb 12.5 9.8 L D Hct 36.7 28.7 L Urine Opiates Screen NEGATIVE - Discharge information/Instructions Discharge Activity: Balance Activity w/Rest, Pelvic Rest Discharge Diet: Regular Disposition: HOME, SELF-CARE Follow up with: [facility] in: 4, Weeks
== END 2019-01-30 12:46 | disposition home or self-care (01) | DRG 807 ==
LOC: LC 10:39 → LR 14:28 → 2S 21:15
PROVIDERS: ADMIT Student in an Organized Health Care Education/Training Program; ATTEND Student in an Organized Health Care Education/Training Program
PROC: 10E0XZZ Delivery of Products of Conception, External Approach (ICD-10-PCS; principal; 2019-01-28)
PROC: 0HQ9XZZ Repair Perineum Skin, External Approach (ICD-10-PCS; 2019-01-28)
DX: O62.2 Other uterine inertia (principal); Z37.0 Single live birth; O70.0 First degree perineal laceration during delivery; Z3A.40 40 weeks gestation of pregnancy
CPT/HCPCS: 36415; 80307; 81005; 85025; 85027; 86592; 86850; 86900; 86901; 94760; J2590; J3010; J3490

== ENCOUNTER 2019-04-26 19:09 | Emergency (ER) | payer SELFPAY ==
[2019-04-26 19:16] VITALS: BP 123/77
[2019-04-26] MEDS ORDERED: CETIRIZINE 10 MG TABLET PO ONE (19:39)
[2019-04-26] MEDS ORDERED: NORMAL SALINE 1000 ML 1,000 ML IV ONE (19:39)
[2019-04-26] MEDS ORDERED: ONDANSETRON HCL INJ/PF 4 MG/2 ML SDV IV ONE (19:39)
[2019-04-26] MEDS ORDERED: BENZONATATE 100 MG CAPSULE PO ONE (19:39)
[2019-04-26] MEDS ORDERED: IBUPROFEN 600 MG TABLET PO ONE (19:41)
--- NOTE | 2019-04-26 19:42 | ER Document Report ---
ED Medical Screen (RME) - General Chief Complaint: Headache Stated Complaint: CHILLS HEADACHE BODY ACHES VOMITING Time Seen by Provider: 04/26/19 19:35 Primary Care Provider: MICHAEL MADRID MD [Primary Care Provider] - Follow up as needed Notes: Patient is a 23-year-old female who presents the emergency department with a chief complaint of body aches and a headache. Her symptoms started yesterday. 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 She states that she feels weak. She complains of nausea, vomiting mucus, and on and off diarrhea. She has tried to take NyQuil to help with her symptoms, but has had little relief. Denies any abdominal pain, dysuria, or any other symptoms. Exam: Rhinorrhea noted. I have greeted and performed a rapid initial assessment of this patient. A comprehensive ED assessment and evaluation of the patient, analysis of test results and completion of medical decision making process will be conducted by an additional ED providers. TRAVEL OUTSIDE OF THE [place] IN LAST 30 DAYS: No - Related Data Allergies/Adverse Reactions: Latex, Natural Rubber Allergy (Verified 01/28/19 13:33) morphine [Morphine] Allergy (Verified 01/28/19 13:33) Vomiting penicillin G [Penicillin G] Allergy (Verified 01/28/19 13:33) Urticaria Penicillins Allergy (Verified 01/28/19 13:33) Urticaria Past Medical History - Social History Frequency of alcohol use: None Drug Abuse: None - Past Medical History Cardiac Medical History: Denies: Hx Coronary Artery Disease, Hx Heart Attack, Hx Hypertension Pulmonary Medical History: Reports: Hx Bronchitis Denies: Hx Asthma, Hx COPD, Hx Pneumonia Neurological Medical History: Denies: Hx Cerebrovascular Accident, Hx Seizures Renal/ Medical History: Reports: Hx Ovarian Cysts. Denies: Hx Peritoneal Dialysis Musculoskeltal Medical History: Denies Hx Arthritis Past Surgical History: Reports: Hx Adenoidectomy, Hx Appendectomy, Hx Gynecologic Surgery - ovarian cyst removal, Hx Orthopedic Surgery - left knee, Hx Tonsillectomy - Immunizations Immunizations up to date: Yes Hx Diphtheria, Pertussis, Tetanus Vaccination: Yes Physical Exam - Vital signs Vitals: Temp Pulse Resp BP Pulse Ox 102.8 F H 123 H 18 123/77 94 04/26/19 19:14 04/26/19 19:14 04/26/19 19:14 04/26/19 19:14 04/26/19 19:14 Course - Vital Signs Vital signs: Temp Pulse Resp BP Pulse Ox 102.8 F H 123 H 18 123/77 94 04/26/19 19:14 04/26/19 19:14 04/26/19 19:14 04/26/19 19:14 04/26/19 19:14 Doctor's Discharge - Discharge Referrals: MICHAEL MADRID MD [Primary Care Provider] - Follow up as needed
[2019-04-26 20:21] LABS: ABSOLUTE LYMPHOCYTES (AUTO) 0.8 10^3/uL (0.5-4.7); ABSOLUTE MONOCYTES (AUTO) 0.6 10^3/uL (0.1-1.4); ABSOLUTE NEUT (AUTO) 10.6 10^3/uL (1.7-8.2); BASOPHILS % (AUTO) 0.1 % (0-2); HEMATOCRIT 38.5 % (36.0-47.0); HEMOGLOBIN 12.8 g/dL (12.0-15.5); LYMPHOCYTES % (AUTO) 6.5 % (13-45); MEAN CORPUSCULAR HEMOGLOBIN 27.9 pg (27.0-33.4); MEAN CORPUSCULAR HGB CONC 33.3 g/dL (32.0-36.0); MEAN CORPUSCULAR VOLUME 84 fl (80-97); MONOCYTES % (AUTO) 4.6 % (3-13); PLATELET COUNT 254 10^3/uL (150-450); RED BLOOD COUNT 4.59 10^6/uL (3.72-5.28); RED CELL DISTRIBUTION WIDTH 12.4 % (11.5-14.0); SEGMENTED NEUTROPHILS % (AUTO) 88.8 % (42-78); TOTAL CELLS COUNTED % (AUTO) 100 %
[2019-04-26 20:37] LABS: ALBUMIN 4.7 g/dL (3.5-5.0); ALKALINE PHOSPHATASE 82 U/L (38-126); ANION GAP 14 (5-19); ASPARTATE AMINO TRANSFERASE 20 U/L (14-36); BILIRUBIN,DIRECT 0.3 mg/dL (0.0-0.4); BILIRUBIN,TOTAL 0.8 mg/dL (0.2-1.3); BLOOD UREA NITROGEN 7 mg/dL (7-20); CALCIUM 9.5 mg/dL (8.4-10.2); CARBON DIOXIDE 25 mmol/L (22-30); CHLORIDE 100 mmol/L (98-107); GLUCOSE 102 mg/dL (75-110); TOTAL PROTEIN 8.4 g/dL (6.3-8.2)
== END 2019-04-26 22:02 | disposition left against medical advice (07) ==
LOC: ER 19:09
DX: R51 Headache (principal); M79.10 Myalgia, unspecified site; R11.2 Nausea with vomiting, unspecified; R19.7 Diarrhea, unspecified; Z91.040 Latex allergy status; Z88.6 Allergy status to analgesic agent; Z88.0 Allergy status to penicillin
CPT/HCPCS: 99281; 96361; 96374; 36415; 85025; 80053; J2405; J7030

== ENCOUNTER 2019-09-21 00:38 | Emergency (ER) | payer SELFPAY ==
[2019-09-21 02:34] LABS: ALBUMIN 4.5 g/dL (3.5-5.0); ALKALINE PHOSPHATASE 69 U/L (38-126); ANION GAP 19 (5-19); ASPARTATE AMINO TRANSFERASE 35 U/L (14-36); BILIRUBIN,DIRECT 0.3 mg/dL (0.0-0.4); BILIRUBIN,TOTAL 0.8 mg/dL (0.2-1.3); BLOOD UREA NITROGEN 11 mg/dL (7-20); CALCIUM 9.8 mg/dL (8.4-10.2); CARBON DIOXIDE 19 mmol/L (22-30); CHLORIDE 102 mmol/L (98-107); GLUCOSE 131 mg/dL (75-110); POTASSIUM 3.8 mmol/L (3.6-5.0); TOTAL PROTEIN 8.1 g/dL (6.3-8.2)
[2019-09-21] MEDS ORDERED: ONDANSETRON HCL INJ/PF 4 MG/2 ML SDV IV ONE (02:56)
[2019-09-21] MEDS ORDERED: KETOROLAC TROMETHAMINE INJ/PF 30 MG/1 ML SDV IV ONE (02:56)
[2019-09-21] MEDS ORDERED: MORPHINE SULFATE 10 MG/ML INJ IV PRN (02:56)
[2019-09-21 03:26] LABS: ABSOLUTE LYMPHOCYTES (AUTO) 0.4 10^3/uL (0.5-4.7); ABSOLUTE MONOCYTES (AUTO) 0.3 10^3/uL (0.1-1.4); ABSOLUTE NEUT (AUTO) 6.8 10^3/uL (1.7-8.2); BASOPHILS % (AUTO) 0.3 % (0-2); HEMATOCRIT 36.7 % (36.0-47.0); HEMOGLOBIN 12.9 g/dL (12.0-15.5); LYMPHOCYTES % (AUTO) 5.4 % (13-45); MEAN CORPUSCULAR HEMOGLOBIN 29.4 pg (27.0-33.4); MEAN CORPUSCULAR HGB CONC 35.1 g/dL (32.0-36.0); MEAN CORPUSCULAR VOLUME 84 fl (80-97); MONOCYTES % (AUTO) 4.5 % (3-13); PLATELET COUNT 203 10^3/uL (150-450); RED BLOOD COUNT 4.38 10^6/uL (3.72-5.28); RED CELL DISTRIBUTION WIDTH 12.6 % (11.5-14.0); SEGMENTED NEUTROPHILS % (AUTO) 89.8 % (42-78); TOTAL CELLS COUNTED % (AUTO) 100 %; WHITE BLOOD COUNT 7.5 10^3/uL (4.0-10.5)
[2019-09-21 03:54] LABS: APPEARANCE,URINE SLIGHTLY-CLOUDY; BILIRUBIN,URINE NEGATIVE (NEGATIVE); COLOR,URINE YELLOW; GLUCOSE, URINE NEGATIVE (NEGATIVE); KETONES,URINE 20 mg/dL (NEGATIVE); LEUKOCYTE ESTERASE,URINE TRACE (NEGATIVE); NITRITE,URINE NEGATIVE (NEGATIVE); PROTEIN,URINE 100 mg/dL (NEGATIVE); URINE SPECIFIC GRAVITY 1.028
--- NOTE | 2019-09-21 04:47 | ER Document Report ---
ED General - General Chief Complaint: Back Pain Stated Complaint: BACK,CHEST PAIN Time Seen by Provider: 09/21/19 04:47 TRAVEL OUTSIDE OF THE [place] IN LAST 30 DAYS: No - Related Data Allergies/Adverse Reactions: Latex, Natural Rubber Allergy (Verified 01/28/19 13:33) morphine [Morphine] Allergy (Verified 01/28/19 13:33) Vomiting penicillin G [Penicillin G] Allergy (Verified 01/28/19 13:33) Urticaria Penicillins Allergy (Verified 01/28/19 13:33) Urticaria Past Medical History - Social History Smoking Status: Never Smoker Frequency of alcohol use: Occasional Drug Abuse: None Family History: Reviewed & Not Pertinent Patient has suicidal ideation: No Patient has homicidal ideation: No - Past Medical History Cardiac Medical History: Denies: Hx Coronary Artery Disease, Hx Heart Attack, Hx Hypertension Pulmonary Medical History: Reports: Hx Bronchitis Denies: Hx Asthma, Hx COPD, Hx Pneumonia Neurological Medical History: Denies: Hx Cerebrovascular Accident, Hx Seizures Renal/ Medical History: Reports: Hx Ovarian Cysts. Denies: Hx Peritoneal Dialysis Musculoskeletal Medical History: Denies Hx Arthritis Past Surgical History: Reports: Hx Adenoidectomy, Hx Appendectomy, Hx Gynecologic Surgery - ovarian cyst removal, Hx Orthopedic Surgery - left knee, Hx Tonsillectomy - Immunizations Immunizations up to date: Yes Hx Diphtheria, Pertussis, Tetanus Vaccination: Yes Physical Exam - Vital signs Vitals: Temp Pulse Resp BP Pulse Ox 100.5 F H 146 H 20 124/69 98 09/21/19 00:44 09/21/19 00:44 09/21/19 00:44 09/21/19 00:44 09/21/19 00:44 Course - Vital Signs Vital signs: Temp Pulse Resp BP Pulse Ox 99.8 F 146 H 20 124/69 98 09/21/19 04:21 09/21/19 00:44 09/21/19 00:44 09/21/19 00:44 09/21/19 00:44 - Laboratory Result Diagrams: 09/21/19 03:10 09/21/19 01:30 Laboratory results interpreted by me: 09/21/19 09/21/19 09/21/19 01:30 03:10 03:10 Lymph % (Auto) 5.4 L Absolute Lymphs (auto) 0.4 L Seg Neutrophils % 89.8 H Carbon Dioxide 19 L Glucose 131 H Urine Protein 100 H Urine Ketones 20 H Urine Urobilinogen 4.0 H Ur Leukocyte Esterase TRACE H
[2019-09-21] MEDS: NORMAL SALINE 1000 ML 1,000 ML IV PRN ×2 (06:05→06:41)
[2019-09-21 06:06] VITALS: BP 102/58
--- NOTE | 2019-09-21 06:40 | ER Document Report ---
ED General Pain - General Chief Complaint: Back Pain Stated Complaint: BACK,CHEST PAIN Time Seen by Provider: 09/21/19 04:47 TRAVEL OUTSIDE OF THE [place] IN LAST 30 DAYS: No - HPI Notes: Patient presents with onset of diffuse body aches pain in her bilateral upper and lower extremities and absence of any sore throat or recent cough or congestion. 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 No known medical problems does not take any medications on a daily basis. Denies any abdominal pain or chest pain at this time or shortness of breath. She has had possibly 3-4 bouts of vomiting since Saturday when this occurred. - Related Data Allergies/Adverse Reactions: Latex, Natural Rubber Allergy (Verified 01/28/19 13:33) morphine [Morphine] Allergy (Verified 01/28/19 13:33) Vomiting penicillin G [Penicillin G] Allergy (Verified 01/28/19 13:33) Urticaria Penicillins Allergy (Verified 01/28/19 13:33) Urticaria Past Medical History - Social History Smoking Status: Never Smoker Frequency of alcohol use: Occasional Drug Abuse: None Family History: Reviewed & Not Pertinent Patient has suicidal ideation: No Patient has homicidal ideation: No - Past Medical History Cardiac Medical History: Denies: Hx Coronary Artery Disease, Hx Heart Attack, Hx Hypertension Pulmonary Medical History: Reports: Hx Bronchitis Denies: Hx Asthma, Hx COPD, Hx Pneumonia Neurological Medical History: Denies: Hx Cerebrovascular Accident, Hx Seizures Renal/ Medical History: Reports: Hx Ovarian Cysts. Denies: Hx Peritoneal Dialysis Musculoskeletal Medical History: Denies Hx Arthritis Past Surgical History: Reports: Hx Adenoidectomy, Hx Appendectomy, Hx Gynecologic Surgery - ovarian cyst removal, Hx Orthopedic Surgery - left knee, Hx Tonsillectomy - Immunizations Immunizations up to date: Yes Hx Diphtheria, Pertussis, Tetanus Vaccination: Yes Review of Systems - Review of Systems Constitutional: See HPI EENT: No symptoms reported Cardiovascular: No symptoms reported Respiratory: No symptoms reported Gastrointestinal: See HPI Genitourinary: No symptoms reported Female Genitourinary: No symptoms reported Musculoskeletal: No symptoms reported Skin: No symptoms reported Hematologic/Lymphatic: No symptoms reported Neurological/Psychological: No symptoms reported Physical Exam - Vital signs Vitals: Temp Pulse Resp BP Pulse Ox 100.5 F H 146 H 20 124/69 98 09/21/19 00:44 09/21/19 00:44 09/21/19 00:44 09/21/19 00:44 09/21/19 00:44 - General General appearance: Appears well, Alert - HEENT Head: Normocephalic, Atraumatic Eyes: Normal Conjunctiva: Normal Cornea: Normal Pupils: PERRL - Respiratory Respiratory status: No respiratory distress Chest status: Nontender Breath sounds: Normal - Cardiovascular Rhythm: Regular Heart sounds: Normal auscultation Murmur: No - Abdominal Inspection: Normal Distension: No distension Bowel sounds: Normal Tenderness: Nontender - Back Back: Normal. No: Vertebra tenderness - Extremities General upper extremity: Normal inspection, Normal strength General lower extremity: Normal inspection, Normal strength - Neurological Neuro grossly intact: Yes Cognition: Normal Orientation: AAOx4 - Psychological Associated symptoms: Normal affect Course - Re-evaluation Re-evalutation: 09/21/19 06:37 Well-appearing patient no acute distress her vitals are within normal limits she has not had any vomitus in the emergency department. She has diffuse body aches and generalized fatigue her symptoms appear viral syndrome in nature. She has no known medical problems otherwise. She asked for work excuse will provide 2 days. I will also provide Zofran. Return precautions provided any worsening of symptoms please seek medical reevaluation 09/21/19 06:39 Of note, her pulse was 146 in triage but she has been here for several hours she is saturating at 97% with a pulse of 92 in no acute distress. 09/21/19 07:00 Patient flu positive will provide Tamiflu - Vital Signs Vital signs: Temp Pulse Resp BP Pulse Ox 99.3 F 89 18 102/58 L 16 L 09/21/19 06:06 09/21/19 06:39 09/21/19 06:39 09/21/19 06:00 09/21/19 06:39 - Laboratory Result Diagrams: 09/21/19 03:10 09/21/19 01:30 Laboratory results interpreted by me: 09/21/19 09/21/19 09/21/19 01:30 03:10 03:10 Lymph % (Auto) 5.4 L Absolute Lymphs (auto) 0.4 L Seg Neutrophils % 89.8 H Carbon Dioxide 19 L Glucose 131 H Urine Protein 100 H Urine Ketones 20 H Urine Urobilinogen 4.0 H Ur Leukocyte Esterase TRACE H Discharge - Discharge Clinical Impression: Generalized fatigue, Flu Condition: Good Disposition: HOME, SELF-CARE Instructions: Viral Syndrome ([facility]) Additional Instructions: Seek medical reevaluation if your systems persist. Prescriptions: Oseltamivir Phosphate [Tamiflu] 75 mg PO BID #10 capsule Ondansetron [Zofran Odt 4 mg Tablet] 1 tab PO ASDIR PRN #15 tab.rapdis PRN Reason: For Nausea/Vomiting Forms: Return to Work
[2019-09-21 06:45] LABS: A TYPE INFLUENZA AG NEGATIVE (NEGATIVE); B INFLUENZA AG POSITIVE (NEGATIVE)
== END 2019-09-21 07:32 | disposition home or self-care (01) ==
LOC: ER 00:38
DX: J11.1 Influenza due to unidentified influenza virus with other respiratory manifestations (principal); M79.601 Pain in right arm; M79.602 Pain in left arm; M79.604 Pain in right leg; M79.605 Pain in left leg; R53.83 Other fatigue; R11.10 Vomiting, unspecified; Z91.040 Latex allergy status; Z88.6 Allergy status to analgesic agent; Z88.5 Allergy status to narcotic agent; Z88.0 Allergy status to penicillin
CPT/HCPCS: 99283; 96361; 96374; 96375; 36415; 83690; 84703; 85025; 80053; 81001; 87804; J1885; J2405; J7030

== ENCOUNTER 2019-09-24 08:18 | Emergency (ER) | payer BC ==
[2019-09-24 08:41] VITALS: BP 119/78
[2019-09-24] MEDS ORDERED: ACETAMINOPHEN 325 MG TABLET PO ONE (09:39)
[2019-09-24] MEDS ORDERED: ONDANSETRON HCL INJ/PF 4 MG/2 ML SDV IV ONE (09:39)
[2019-09-24] MEDS ORDERED: ONDANSETRON ODT 4 MG TAB (6 TAB/ER DISP) PO PRN ×2 (09:39→10:43)
[2019-09-24] MEDS ORDERED: IBUPROFEN 600 MG TABLET PO ONE (09:39)
--- NOTE | 2019-09-24 09:40 | ER Document Report ---
HPI - HPI Time Seen by Provider: 09/24/19 08:45 Pain Level: 5 Context: 23-year-old female diagnosed with the flu here on Saturday presents the emergency department with worsening symptoms. Patient states that she has been nauseated and vomiting and has had a poor appetite. She also states that she is having generalized body aches. Patient is concerned that she is dehydrated and she does appear mildly clinically dehydrated. Intermittent fevers but currently afebrile. Complains of chills. Complains of cough. No other complaints - CONSTITUTIONAL Constitutional: REPORTS: Fever - RESPIRATORY Respiratory: REPORTS: Coughing - REPRODUCTIVE Reproductive: DENIES: : Past Medical History - Social History Smoking Status: Never Smoker Frequency of alcohol use: Occasional Drug Abuse: None Family History: Reviewed & Not Pertinent Patient has suicidal ideation: No Patient has homicidal ideation: No - Past Medical History Cardiac Medical History: Denies: Hx Coronary Artery Disease, Hx Heart Attack, Hx Hypertension Pulmonary Medical History: Reports: Hx Bronchitis Denies: Hx Asthma, Hx COPD, Hx Pneumonia Neurological Medical History: Denies: Hx Cerebrovascular Accident, Hx Seizures Renal/ Medical History: Reports: Hx Ovarian Cysts. Denies: Hx Peritoneal Dialysis Musculoskeletal Medical History: Denies Hx Arthritis Past Surgical History: Reports: Hx Adenoidectomy, Hx Appendectomy, Hx Gynecologic Surgery - ovarian cyst removal, Hx Orthopedic Surgery - left knee, Hx Tonsillectomy - Immunizations Immunizations up to date: Yes Hx Diphtheria, Pertussis, Tetanus Vaccination: Yes Vertical Provider Document - CONSTITUTIONAL Notes: PHYSICAL EXAMINATION: Reviewed vital signs and charting by RN GENERAL: Alert, interacts well. No acute distress. Dry mucous membranes with a cracked lower lip HEAD: Normocephalic, atraumatic. EYES: Pupils equal and round. Extraocular movements intact. ENT: Oral mucosa moist, tongue midline. NECK: Full range of motion. Trachea midline. LUNGS: Clear to auscultation bilaterally, no wheezes, rales, or rhonchi. No respiratory distress. HEART: Regular rate and rhythm. No murmur ABDOMEN: soft, non-tender. No distention. Bowel sounds present EXTREMITIES: Moves all 4 extremities spontaneously. No edema, No cyanosis. PSYCH: Normal affect, normal mood. SKIN: Warm, dry, normal turgor. No rashes or lesions noted. - INFECTION CONTROL TRAVEL OUTSIDE OF THE [place] IN LAST 30 DAYS: No Course - Re-evaluation Re-evalutation: 09/24/19 09:36 Patient presents with continuing influenza symptoms. Positive influenza test on 09/21/2019. I gave patient anticipatory guidance and told her that she will have probably 1 solid week of the symptoms and they could get worse before they get better. She does appear mildly dehydrated so I am going to obtain a urinalysis resuscitate her with some IV fluids. Once she is resuscitated she will be stable for discharge and she was given anticipatory guidance and told to stay out of work until next Saturday or Saturday. 09/24/19 10:37 Patient received normal saline 2 L IV, heart rate has come down to 90 when checked manually, lungs are clear to auscultation in all palacio I have low suspicion for pneumonia and she is afebrile and not tachypneic. I do not feel we need to do a chest x-ray at this time. Urinalysis did not show any evidence of dehydration. At this time patient is stable for discharge with strict return precautions. - Vital Signs Vital signs: Temp Pulse Resp BP Pulse Ox 98.3 F 116 H 16 119/78 99 09/24/19 08:40 09/24/19 08:40 09/24/19 08:40 09/24/19 08:40 09/24/19 08:40 Discharge - Discharge Clinical Impression: Influenza B Condition: Good Disposition: HOME, SELF-CARE Additional Instructions: You have influenza B. There is no treatment that is effective for this diagnosis other than supportive care at home. This includes drinking plenty of fluids, using Tylenol 1000 mg every 6 hours and/or ibuprofen 600 mg every 6 hours with food and/or milk as needed for fever and discomfort, and Zofran as needed for nausea and vomiting. Please follow closely with you primary care physician the next 1-2 days regarding this diagnosis. Return to the emergency department immediately if you began to have persistent vomiting prevents you from being able to keep fluids down for more than 12 hours, you pass out, you began having difficulty breathing, you become confused, or you have any other symptoms that are worrisome to you. Forms: Return to Work
[2019-09-24] MEDS: NORMAL SALINE 1000 ML 1,000 ML IV PRN ×2 (10:00→10:05)
[2019-09-24 10:07] LABS: APPEARANCE,URINE CLOUDY; BILIRUBIN,URINE NEGATIVE (NEGATIVE); COLOR,URINE AMBER; GLUCOSE, URINE NEGATIVE (NEGATIVE); KETONES,URINE NEGATIVE (NEGATIVE); LEUKOCYTE ESTERASE,URINE SMALL (NEGATIVE); NITRITE,URINE NEGATIVE (NEGATIVE); PROTEIN,URINE 30 mg/dL (NEGATIVE); URINE SPECIFIC GRAVITY 1.016
== END 2019-09-24 10:58 | disposition home or self-care (01) ==
LOC: ER 08:18
DX: J10.1 Influenza due to other identified influenza virus with other respiratory manifestations (principal); R11.2 Nausea with vomiting, unspecified; R52 Pain, unspecified; R68.83 Chills (without fever); R05 Cough
CPT/HCPCS: 99283; 96374; 87086; 81025; 81001; J2405; J7030